=== PATIENT | female | born 2000 | race Hispanic/Latino ===

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

== ENCOUNTER 2021-05-17 17:48 | Inpatient (IN) | payer OTHER ==
[2021-05-17] MEDS ORDERED: Ondansetron ODT 4 MG TAB PO PRN (21:39)
[2021-05-17] MEDS ORDERED: Ondansetron PF 4 MG/2 ML Vial IVP PRN (21:39)
[2021-05-17] MEDS: Sodium Chloride 0.9% 1,000 ML IV SCH (22:31)
[2021-05-17] MEDS ORDERED: Acetaminophen 650 MG Suppository PR PRN (23:03)
[2021-05-17] MEDS: Acetaminophen 325 MG TAB PO PRN (23:23)
[2021-05-18 04:54] LABS: #Eosinphils 0.2 thou/uL (0.0-0.7); #Lymphocytes 1.9 thou/uL (1.20-3.40); #Monocytes 0.7 thou/uL (0.11-0.59); #Neutrophils 7.3 thou/uL (1.40-6.50); %Basophils 0.3 % (0.0-1.0); %Eosinophils 1.9 % (0.0-10.0); %Lymphocytes 18.3 % (28.0-48.0); %Monocytes 7.1 % (0.0-4.0); %Neutrophils 72.3 % (31.0-61.0); Hemoglobin 12.2 g/dL (12.0-16.0); Mean Corpuscular Hemoglobin 30.3 pg (25.0-35.0); Mean Corpuscular Volume 91.8 fL (78.0-98.0); Platelet Count 288 thou/uL (130-400); RBC Distribution Width 12.4 % (11.5-14.5); Red Blood Cell (RBC) Count 4.04 mill/uL (4.00-5.20); White Blood Cell (WBC) Count 10.1 thou/uL (4.8-10.8)
[2021-05-18] MEDS ORDERED: Ketorolac Tromethamine 30 MG/ML VIAL IVP PRN (04:57)
[2021-05-18 05:13] LABS: ALT (SGPT) 42 U/L (8-55); AST (SGOT) 23 U/L (5-30); Albumin 3.7 g/dL (3.5-5.0); Alkaline Phosphatase 105 U/L (40-100); Anion Gap 9 mmol/L (10-20); BUN (Urea Nitrogen) 4 mg/dL (8.4-21.0); Bilirubin, Total 0.5 mg/dL (0.2-1.2); Calc. Creatinine Clearance 0 mL/min (70-130); Calcium 8.1 mg/dL (7.8-10.44); Carbon Dioxide 24 mmol/L (22-29); Chloride 106 mmol/L (98-107); Globulin 2.8 g/dL (2.4-3.5); Glucose 103 mg/dL (70-105); Potassium 3.3 mmol/L (3.5-5.1); Protein, Total 6.5 g/dL (6.0-8.3); Sodium 136 mmol/L (136-145)
[2021-05-18 05:29] LABS: HBCM Index 0.08 S/CO (0-0.79); Hep A IgM AB Non-Reactive (NonReactive); Hep A IgM S/CO 0.14 S/CO (0-0.79); Hep B Surf Ag Non-Reactive S/CO (NonReactive); Hep C IgG Ab Non-Reactive (NonReactive); Hep C Index 0.14 S/CO (0-0.79); Hepatitis B Core IgM Abs Non-Reactive (NonReactive)
[2021-05-18 06:30] VITALS: BMI 24.0
[2021-05-18] MEDS: Sodium Chloride 0.9% 1,000 ML IV SCH ×2 (09:08→20:50)
[2021-05-18] MEDS: cefTRIAXone\\ROCEPHIN 1 GM in Sodium Chloride 0.9% 100 ML IVPB SCH (09:09)
[2021-05-18] MEDS: Enoxaparin Sodium 40 MG/0.4 ML SYRINGE SC SCH (09:09)
[2021-05-18 12:56] LABS: BHCG - Serum Negative (NEGATIVE); Pregs Control Background? CLEAR/WHITE (CLR/WHITE); Pregs Control Bar Appear? YES (CONTROL BAR)
[2021-05-18 15:13] LABS: SARS-CoV-2 PCR by NAA Not Detected (NotDetected)
[2021-05-18] MEDS: Acetaminophen 325 MG TAB PO PRN (20:49)
[2021-05-19] MEDS: Sodium Chloride 0.9% 1,000 ML IV SCH ×2 (06:17→09:03)
[2021-05-19] MEDS: cefTRIAXone\\ROCEPHIN 1 GM in Sodium Chloride 0.9% 100 ML IVPB SCH (09:02)
[2021-05-19] MEDS: Enoxaparin Sodium 40 MG/0.4 ML SYRINGE SC SCH (09:03)
[2021-05-19] MEDS: Acetaminophen 325 MG TAB PO PRN (16:32)
[2021-05-20] MEDS: Sodium Chloride 0.9% 1,000 ML IV SCH (03:00)
[2021-05-20 09:02] VITALS: BP 96/60; TEMP 98.4
[2021-05-20] MEDS: Enoxaparin Sodium 40 MG/0.4 ML SYRINGE SC SCH (09:32)
[2021-05-20] MEDS: cefTRIAXone\\ROCEPHIN 1 GM in Sodium Chloride 0.9% 100 ML IVPB SCH (09:32)
== END 2021-05-20 11:59 | disposition home or self-care (01) | DRG 872 ==
LOC: 2NO 17:48 → INTOOBSV 17:48 → OBSVTOIN 05-18 10:43 → MSONC 05-18 13:56
PROVIDERS: ADMIT Internal Medicine; ATTEND Internal Medicine
DX: A41.51 Sepsis due to Escherichia coli [E. coli] (principal); N30.01 Acute cystitis with hematuria; Z20.822 Contact with and (suspected) exposure to COVID-19; E87.6 Hypokalemia; R74.01 Elevation of levels of liver transaminase levels
CPT/HCPCS: 36415; 74176; 76705; 80053; 80074; 84703; 85025; 96372; 96374; G0378; J0696; J1650; J1885; J2405; J3490; J7050; U0003; U0005